=== PATIENT | male | born 1975 | race Caucasian/White ===

== ENCOUNTER → 2019-04-25 | Outpatient (CLI) | payer OTHER ==
--- NOTE | 2019-04-25 15:49 | KCIC ---
MR of the right knee HISTORY: Right knee pain medially for a couple of months. Previous meniscal tear. TECHNIQUE: Routine multiplanar sequences are obtained. FINDINGS: No evidence of medial meniscal tear. No evidence of lateral meniscal tear. Anterior and posterior cruciate ligaments are intact. Medial collateral ligament intact. Iliotibial band unremarkable. Fibular collateral ligament, biceps femoris tendon and popliteus tendon are intact. Extensor mechanism is intact. Trace amount of joint fluid. Scarring of the infrapatellar fat. No evidence of acute articular cartilage defect or advanced DJD. No acute fracture. No aggressive bone destruction. No significant Alaniz's cyst. IMPRESSION: 1. Scarring of the infrapatellar fat presumably due to prior surgery. 2. No evidence of acute abnormality or internal derangement. Electronically signed by: Benitez Tang MD (04/25/2019 3:46 PM) [id number]
== END | disposition home or self-care (01) ==
LOC: KCIC MRI 14:20
PROVIDERS: ATTEND Orthopaedic Surgery
DX: M25.461 Effusion, right knee (principal)
CPT/HCPCS: 73721